=== PATIENT | female | born 1945 | race African-American/Black ===

== ENCOUNTER 2016-07-12 10:24 | Day surgery (SDC) | payer MEDICARE ==
--- NOTE | ~2016-07-12 | EGD ---
EGD REPORT [facility] [address] [id number] NAME: ANTONINA GARCIA : [birth year] STATUS : REG [facility] PAT#: [id number] AGE: 70 ADM/REG DATE : 07/12/16 MR#: [id number] REPORT SERV DATE: 07/12/16 DICTATED BY: RYAN ATKINS III DATE: 07/12/16 REPORT STATUS : Draft [facility]ANS[facility]IBED BY: [facility] DATE: 07/12/16 [facility] Patient Name: Antonina Garcia Date of : 1945 Attending MD: RYAN ATKINS III, MD Procedure Date No Time: 07/12/2016 Procedure: Colonoscopy Indications: Screening for colorectal malignant neoplasm Referring MD: DIANE LYONS Medicines: Propofol per Anesthesia Complications: No immediate complications. Procedure: Pre-Anesthesia Assessment: - ASA Grade Assessment: III - A patient with severe systemic disease. After I obtained informed consent, the scope was passed under direct vision. Throughout the procedure, the patient's blood pressure, pulse, and oxygen saturations were monitored continuously. The PCF [id number] was introduced through the anus and advanced to the cecum, identified by appendiceal orifice and ileocecal valve. The colonoscopy was performed with ease. The patient tolerated the procedure well. The quality of the bowel preparation was good. Findings: Multiple diverticula were found in the sigmoid colon. A sessile polyp was found in the transverse colon. The polyp was 5 mm in size. The polyp was removed with a cold biopsy forceps. Resection and retrieval were complete. Impression: - Diverticulosis in the sigmoid colon. - One 5 mm polyp in the transverse colon. Resected and retrieved. Recommendation: - Patient has a contact number available for emergencies. The signs and symptoms of potential delayed complications were discussed with the patient. Return to normal activities tomorrow. Written discharge instructions were provided to the patient. - Patient has a contact number available for emergencies. The signs and symptoms of potential delayed complications were discussed with the patient. Return to normal activities tomorrow. Written discharge instructions were provided to the patient. - Discharge patient to home. EGD REPORT [address] [address] NAME: ANTONINA GARCIA : [birth year] STATUS : REG [facility] PAT#: [id number] AGE: 70 ADM/REG DATE : 07/12/16 MR#: [id number] REPORT SERV DATE: 07/12/16 DICTATED BY: RYAN ATKINS III DATE: 07/12/16 REPORT STATUS : Draft TRANSCRIBED BY: [employer] DATE: 07/12/16 - Continue present medications. - Await pathology results. Procedure Code(s): --- Professional --- 42392, Colonoscopy, flexible, proximal to splenic flexure; with biopsy, single or multiple Diagnosis Code(s): --- Professional --- K57.30, Diverticulosis of large intestine without perforation or abscess without bleeding D12.3, Benign neoplasm of transverse colon Z12.11, Encounter for screening for malignant neoplasm of colon CPT copyright 2013 [employer]. All rights reserved. The codes documented in this report are preliminary and upon log cut off sawyer review may be revised to meet current compliance requirements. RYAN ATKINS III, MD 07/12/2016 12:22 PM This report has been signed electronically. Number of Addenda: 0 Note Initiated On: 07/12/2016 11:57 AM Scope Withdrawal Time 0 hours 14 minutes 6 seconds [id number] [id number]
[~2016-07-12 10:24] MED LIST: ADALAT CC90 MG PO; GLUCPH PO; HYDROCHLOROT25 MG PO; KLOR-CON M1010 MEQ PO; KLOR-CON M2020 MEQ PO; MACROBID PO; PLAVIX PO; PRAV10 PO; PRIN2.5 PO
== END 2016-07-12 23:59 | disposition home or self-care (01) ==
LOC: DMU 10:24
PROVIDERS: Internal Medicine Gastroenterology
PROC: 0DBL8ZZ Excision of Transverse Colon, Via Natural or Artificial Opening Endoscopic (ICD-10-PCS; principal; 2016-07-12 12:00)
DX: Z12.11 Encounter for screening for malignant neoplasm of colon (principal); D12.3 Benign neoplasm of transverse colon; Z87.891 Personal history of nicotine dependence; E11.9 Type 2 diabetes mellitus without complications; G43.909 Migraine, unspecified, not intractable, without status migrainosus; Z86.73 Personal history of transient ischemic attack (TIA), and cerebral infarction without residual deficits; I10 Essential (primary) hypertension; Z90.710 Acquired absence of both cervix and uterus; Z98.51 Tubal ligation status; Z98.890 Other specified postprocedural states
CPT/HCPCS: 82962; 88305